=== PATIENT | female | born 1955 | race Caucasian/White ===

== ENCOUNTER 2018-09-09 11:04 | Observation (INO) | payer OTHER, SELFPAY ==
[2018-09-09] VITALS (7 sets, daily range): BP systolic 103–154; BP diastolic 61–85; PULSE 50–67; RESP 14–18; TEMP 36.4–36.7; O2SAT 96–100; BMI 24.0
[2018-09-09] MEDS: KETOROLAC 60 MG/2 ML VIAL 30 MG IV (11:46)
[2018-09-09 11:47] LABS: Add Manual Diff / Slide Review NO; Basophils Percent Auto 1.4 % (0-2); Eosinophils Percent Auto 2.8 % (2-4); Hematocrit 42.2 % (36-46); Hemoglobin 14.3 g/dL (12.0-16.0); Lymphocytes Percent Auto 31.7 % (25-40); Mean Corpuscular Hemoglobin 32.9 PG (26-34); Mean Corpuscular Volume 96.9 fL (80-100); Neutrophils Absolute Auto 2900 /uL (3000-5900); Neutrophils Percent Auto 57.1 % (50-75); Platelet Count 222 X10^3/uL (150-400); Red Blood Cell Count 4.36 X10^6/uL (4.0-5.2); Red Cell Distribution Width 13.1 % (11.6-14.8)
[2018-09-09] MEDS: ONDANSETRON 4 MG/2 ML INJ IV ×3 (11:47→19:26)
[2018-09-09 11:54] LABS: INR 0.9 (0.9-1.3)
[2018-09-09 11:57] LABS: PTT Partial Thromboplastin Tim 20 SECONDS (26.4-36.2)
[2018-09-09 11:58] LABS: Alanine Aminotransferase 72 IU/L (9-52); Albumin 4.4 g/dL (3.5-5.0); Albumin Globulin Ratio 1.6 (1.0-2.8); Alkaline Phosphatase 104 U/L (38-126); Aspartate Aminotransferase 104 IU/L (14-36); Bilirubin Total 0.5 mg/dL (0.2-1.3); Blood Urea Nitrogen 15 mg/dL (7-17); Calcium 8.8 mg/dL (8.4-10.2); Carbon Dioxide 27 mmol/L (22-32); Chloride 101 mmol/L (98-107); Estimated Glomerular Filt Rate 55.8 mL/min (>60); Globulin 2.7 g/dL (1.7-4.1); Glucose 112 mg/dL (80-110); HEMOLYSIS < 15 (0-50); Lipase 113 U/L (23-300); Potassium 3.9 mmol/L (3.4-5.1); Sodium 139 mmol/L (137-145); Total Protein 7.1 g/dL (6.3-8.2)
[2018-09-09 12:44] LABS: Bacteria Urine Moderate (10-30); RBC Urine 1-5/HPF (0-5/HPF); Squamous Epithelial Cell Urine 5-10 /HPF; WBC Urine 5-10/HPF (0-5/HPF)
[2018-09-09 12:45] LABS: Culture Indicated Urine Specimen Cultured
--- NOTE | 2018-09-09 12:51 | ED.FEMALEGU ---
HPI - Female Genitourinary <LAURA Torres - Last Filed: 09/09/18 22:24> General Chief complaint: Urogenital-Female Stated complaint: kidney stones Time Seen by Provider: 09/09/18 11:41 Source: patient Mode of arrival: ambulatory Limitations: no limitations History of Present Illness HPI Narrative: A 62-year-old female with history of kidney stones as a nonsmoker here for complaint of pain into her suprapubic area and also to the right flank area that started earlier today. She states that the feels like she has a kidney stone at this time.. She has also had nausea vomiting. She denies any fevers. She denies any urinary symptoms. No trauma to the abdomen or to the flank area. She denies any blood in her urine. She denies any stressors relievers of her discomfort. Related Data Home Medications Medication Instructions Recorded Confirmed lisdexamfetamine [Vyvanse] 40 mg PO QAM 09/09/18 09/09/18 naproxen sodium [Aleve] 440 mg PO BID PRN 09/09/18 09/09/18 trazodone 50 mg PO BEDTIME PRN 09/09/18 09/09/18 venlafaxine 75 mg PO DAILY 09/09/18 09/09/18 Allergies Allergy/AdvReac Type Severity Reaction Status Date / Time erythromycin base Allergy Unknown Verified 09/09/18 11:21 Review of Systems <LAURA Torres - Last Filed: 09/09/18 22:24> Constitutional Denies chills, Denies fever(s), Denies lethargy and Denies weakness Eyes Denies change in vision, Denies eye discharge, Denies irritation and Denies loss of vision ENT Ears, Nose, Mouth, and Throat: Denies change in voice, Denies neck pain and Denies sore throat Cardiovascular Denies chest pain, Denies irregular heart rhythm, Denies lightheadedness, Denies palpitations, Denies dyspnea, Denies dyspnea on exertion and Denies orthopnea Respiratory Denies cough, Denies dyspnea, Denies dyspnea on exertion and Denies wheezing Gastrointestinal Gastrointestinal: Denies abdominal pain, Denies change in bowel habits, Denies diarrhea, Denies nausea and Denies vomiting Genitourinary Comments: Suprapubic pain and flank pain Musculoskeletal Denies neck pain Integumentary/Breasts Denies pruritus, Denies erythema, Denies rash and Denies wounds Neurologic Denies confusion, Denies loss of vision and Denies weakness Psychiatric Denies anxiety, Denies confusion, Denies depression, Denies homicidal ideation and Denies suicidal ideation Endocrine Denies palpitations Hematologic/Lymphatic Denies easy bruising Allergic/Immunologic Denies wheezing Exam <LAURA Torres - Last Filed: 09/09/18 22:24> Initial Vital Signs Initial Vital Signs: Vital Signs Temperature 97.6 F 09/09/18 11:18 Pulse Rate 50 L 09/09/18 11:18 Respiratory Rate 14 09/09/18 11:18 Blood Pressure 142/85 H 09/09/18 11:18 Pulse Oximetry 100 09/09/18 11:18 Const General: cooperative and well developed Nutritional Appearance: well nourished Orientation: alert, awake, oriented x3 and not confused HENMT Mouth: oral mucosae normal and mucous membranes abnormal Eyes Conjunctivae: conjunctivae normal Sclera: sclerae normal Pupils: PERRL EOM: EOM intact bilaterally Resp Effort & Inspection: normal respiratory effort, able to speak in complete sentences, no respiratory distress and no use of accessory muscles Auscultation: clear to auscultation bilaterally, no rales, no rhonchi and no wheezes Cardio Rate: regular rate Rhythm: regular rhythm Heart Sounds: no click, no gallops, no murmurs and no rubs Pulses: normal peripheral pulses GI Inspection: non-distended Palpation: soft, no hepatosplenomegaly, No guarding, No pulsatile mass and tender (Suprapubic tenderness) Auscultation: normal bowel sounds General: No CVA tenderness Back/Spine/Pelvis Other: Tenderness to paraspinals the lumbar spine Skin General: no rashes or lesions noted, No jaundice and No petechiae Neuro General: alert, oriented x3, gait normal and no focal motor deficits Speech: speech normal <Ortega Waldron DO - Last Filed: 09/10/18 07:04> Initial Vital Signs Initial Vital Signs: Vital Signs Temperature 97.6 F 09/09/18 11:18 Pulse Rate 50 L 09/09/18 11:18 Respiratory Rate 14 09/09/18 11:18 Blood Pressure 142/85 H 09/09/18 11:18 Pulse Oximetry 100 09/09/18 11:18 Course <LAURA Torres - Last Filed: 09/09/18 22:24> Orders Ordered: ED Orders 09/10/18 05:37 Basic Metabolic Panel Routine Complete Blood Count AUTO DIFF Routine Enoxaparin Sodium (Lovenox) 40 mg SUBCUT DAILY [facility] Levofloxacin (Levaquin) 750 mg in 150 mls @ 100 mls/hr IV Q24H STEPHANIE Sodium Chloride (Normal Saline 0.9%) 1,000 mls @ 100 mls/hr IV CONT STEPHANIE Last Admin: 09/10/18 03:20 Dose: 100 mls/hr Infusion: 09/10/18 02:31 Dose: 100 mls/hr Admin: 09/09/18 16:31 Dose: 100 mls/hr Indomethacin (Indocin) 25 mg PO Q6H PRN PRN Reason: RENAL COLIC Morphine Sulfate (Morphine) 2 mg IV Q4HR PRN PRN Reason: Pain, Moderate (4-6) Last Admin: 09/09/18 16:39 Dose: 2 mg Vyvanse 40 Mg 40 mg PO DAILY [facility] Ondansetron HCl (Zofran) 4 mg IV Q4HR PRN PRN Reason: Nausea And Vomiting Last Admin: 09/09/18 19:26 Dose: 4 mg Admin: 09/09/18 13:11 Dose: 4 mg Prochlorperazine (Compazine) 5 mg IV Q6HR PRN PRN Reason: Nausea Tamsulosin HCl (Flomax) 0.4 mg PO DAILY [facility] Trazodone HCl (Desyrel) 50 mg PO BEDTIME PRN PRN Reason: insomnia Venlafaxine HCl (Effexor Xr) 75 mg PO DAILY [facility] Discontinued Medications Diphenhydramine HCl (Benadryl) 25 mg IV NOW ONE Stop: 09/09/18 14:23 Last Admin: 09/09/18 14:25 Dose: 25 mg Sodium Chloride (Normal Saline 0.9%) 1,000 mls @ 1,000 mls/hr IV BOLUS ONE Stop: 09/09/18 14:27 Last Infusion: 09/09/18 16:17 Dose: 0 mls/hr Admin: 09/09/18 13:53 Dose: 1,000 mls/hr Ceftriaxone Sodium/Dextrose (Rocephin) 1 gm in 50 mls @ 100 mls/hr IV NOW ONE Stop: 09/09/18 13:57 Last Infusion: 09/09/18 16:17 Dose: 0 mls/hr Admin: 09/09/18 13:53 Dose: 100 mls/hr Levofloxacin (Levaquin) 750 mg in 150 mls @ 100 mls/hr IV NOW ONE Stop: 09/09/18 16:18 Last Admin: 09/09/18 15:34 Dose: 100 mls/hr Ketorolac Tromethamine (Toradol) 30 mg IV NOW ONE Stop: 09/09/18 11:42 Last Admin: 09/09/18 11:46 Dose: 30 mg Ondansetron HCl (Zofran) 4 mg IV NOW ONE Stop: 09/09/18 11:25 Last Admin: 09/09/18 11:47 Dose: 4 mg Prochlorperazine (Compazine) 10 mg IV NOW ONE Stop: 09/09/18 14:23 Last Admin: 09/09/18 14:25 Dose: 10 mg Promethazine HCl (Phenadoz) 12.5 mg SD Q6HR PRN PRN Reason: Nausea And Vomiting Tamsulosin HCl (Flomax) 0.4 mg PO NOW ONE Stop: 09/09/18 14:50 Last Admin: 09/09/18 16:17 Dose: Not Given Vital Signs - 8 hr 09/09/18 23:25 09/10/18 00:00 09/10/18 03:27 Temperature 98.0 F 97.6 F Pulse Rate 67 61 Respiratory Rate 18 16 Blood Pressure 103/61 103/50 L Pulse Oximetry 96 96 94 <Ortega Waldron, - Last Filed: 09/10/18 07:04> Orders Ordered: ED Orders 09/10/18 05:37 Basic Metabolic Panel Routine Complete Blood Count AUTO DIFF Routine Enoxaparin Sodium (Lovenox) 40 mg SUBCUT DAILY [facility] Levofloxacin (Levaquin) 750 mg in 150 mls @ 100 mls/hr IV Q24H STEPHANIE Sodium Chloride (Normal Saline 0.9%) 1,000 mls @ 100 mls/hr IV CONT STEPHANIE Last Admin: 09/10/18 03:20 Dose: 100 mls/hr Infusion: 09/10/18 02:31 Dose: 100 mls/hr Admin: 09/09/18 16:31 Dose: 100 mls/hr Indomethacin (Indocin) 25 mg PO Q6H PRN PRN Reason: RENAL COLIC Morphine Sulfate (Morphine) 2 mg IV Q4HR PRN PRN Reason: Pain, Moderate (4-6) Last Admin: 09/09/18 16:39 Dose: 2 mg Vyvanse 40 Mg 40 mg PO DAILY [facility] Ondansetron HCl (Zofran) 4 mg IV Q4HR PRN PRN Reason: Nausea And Vomiting Last Admin: 09/09/18 19:26 Dose: 4 mg Admin: 09/09/18 13:11 Dose: 4 mg Prochlorperazine (Compazine) 5 mg IV Q6HR PRN PRN Reason: Nausea Tamsulosin HCl (Flomax) 0.4 mg PO DAILY [facility] Trazodone HCl (Desyrel) 50 mg PO BEDTIME PRN PRN Reason: insomnia Venlafaxine HCl (Effexor Xr) 75 mg PO DAILY [facility] Discontinued Medications Diphenhydramine HCl (Benadryl) 25 mg IV NOW ONE Stop: 09/09/18 14:23 Last Admin: 09/09/18 14:25 Dose: 25 mg Sodium Chloride (Normal Saline 0.9%) 1,000 mls @ 1,000 mls/hr IV BOLUS ONE Stop: 09/09/18 14:27 Last Infusion: 09/09/18 16:17 Dose: 0 mls/hr Admin: 09/09/18 13:53 Dose: 1,000 mls/hr Ceftriaxone Sodium/Dextrose (Rocephin) 1 gm in 50 mls @ 100 mls/hr IV NOW ONE Stop: 09/09/18 13:57 Last Infusion: 09/09/18 16:17 Dose: 0 mls/hr Admin: 09/09/18 13:53 Dose: 100 mls/hr Levofloxacin (Levaquin) 750 mg in 150 mls @ 100 mls/hr IV NOW ONE Stop: 09/09/18 16:18 Last Admin: 09/09/18 15:34 Dose: 100 mls/hr Ketorolac Tromethamine (Toradol) 30 mg IV NOW ONE Stop: 09/09/18 11:42 Last Admin: 09/09/18 11:46 Dose: 30 mg Ondansetron HCl (Zofran) 4 mg IV NOW ONE Stop: 09/09/18 11:25 Last Admin: 09/09/18 11:47 Dose: 4 mg Prochlorperazine (Compazine) 10 mg IV NOW ONE Stop: 09/09/18 14:23 Last Admin: 09/09/18 14:25 Dose: 10 mg Promethazine HCl (Phenadoz) 12.5 mg SD Q6HR PRN PRN Reason: Nausea And Vomiting Tamsulosin HCl (Flomax) 0.4 mg PO NOW ONE Stop: 09/09/18 14:50 Last Admin: 09/09/18 16:17 Dose: Not Given Vital Signs - 8 hr 09/09/18 23:25 09/10/18 00:00 09/10/18 03:27 Temperature 98.0 F 97.6 F Pulse Rate 67 61 Respiratory Rate 18 16 Blood Pressure 103/61 103/50 L Pulse Oximetry 96 96 94 MDM - Female Genitourinary <LAURA Torres - Last Filed: 09/09/18 22:24> Lab Data Result diagrams: 09/10/18 05:37 09/10/18 05:37 Lab Results 09/09/18 09/09/18 09/09/18 Range/Units 11:35 11:35 11:35 WBC 5.0 (4.5-11.0) X10^3/uL RBC 4.36 (4.0-5.2) X10^6/uL Hgb 14.3 (12.0-16.0) g/dL Hct 42.2 (36-46) % MCV 96.9 (80-100) fL MCH 32.9 (26-34) PG MCHC 34.0 (30-36) % RDW 13.1 (11.6-14.8) % Plt Count 222 (150-400) X10^3/uL Neut % (Auto) 57.1 (50-75) % Lymph % (Auto) 31.7 (25-40) % Gall[place] % (Auto) 7.0 (3-14) % Eos % (Auto) 2.8 (2-4) % Baso % (Auto) 1.4 (0-2) % Neut # (Auto) 2900 L (1803-0640) /uL PT 10.0 L (10.1-12.7) SECONDS INR 0.9 (0.9-1.3) APTT 20 L (26.4-36.2) SECONDS Sodium 139 (137-145) mmol/L Potassium 3.9 (3.4-5.1) mmol/L Chloride 101 (98-107) mmol/L Carbon Dioxide 27 (22-32) mmol/L BUN 15 (7-17) mg/dL Creatinine 1.00 (0.52-1.04) mg/dL Estimated GFR 55.8 L (>60) mL/min BUN/Creatinine Ratio 15.0 (6-22) Glucose 112 H (80-110) mg/dL Lactate (0.7-2.1) mmol/L Calcium 8.8 (8.4-10.2) mg/dL Total Bilirubin 0.5 (0.2-1.3) mg/dL AST 104 H (14-36) IU/L ALT 72 H (9-52) IU/L Alkaline Phosphatase 104 (38-126) U/L Total Protein 7.1 (6.3-8.2) g/dL Albumin 4.4 (3.5-5.0) g/dL Globulin 2.7 (1.7-4.1) g/dL Albumin/Globulin Ratio 1.6 (1.0-2.8) Lipase 113 (23-300) U/L Procalcitonin (<0.5) ng/mL Urine RBC (0-5/HPF) Urine WBC (0-5/HPF) Ur Squamous Epith Cells Urine Bacteria (None) Ur Culture Indicated? Micro UA Comment 09/09/18 09/09/18 09/09/18 Range/Units 11:35 12:28 15:17 WBC (4.5-11.0) X10^3/uL RBC (4.0-5.2) X10^6/uL Hgb (12.0-16.0) g/dL Hct (36-46) % MCV (80-100) fL MCH (26-34) PG MCHC (30-36) % RDW (11.6-14.8) % Plt Count (150-400) X10^3/uL Neut % (Auto) (50-75) % Lymph % (Auto) (25-40) % Gall[place] % (Auto) (3-14) % Eos % (Auto) (2-4) % Baso % (Auto) (0-2) % Neut # (Auto) (9783-2707) /uL PT (10.1-12.7) SECONDS INR (0.9-1.3) APTT (26.4-36.2) SECONDS Sodium (137-145) mmol/L Potassium (3.4-5.1) mmol/L Chloride (98-107) mmol/L Carbon Dioxide (22-32) mmol/L BUN (7-17) mg/dL Creatinine (0.52-1.04) mg/dL Estimated GFR (>60) mL/min BUN/Creatinine Ratio (6-22) Glucose (80-110) mg/dL Lactate 1.9 (0.7-2.1) mmol/L Calcium (8.4-10.2) mg/dL Total Bilirubin (0.2-1.3) mg/dL AST (14-36) IU/L ALT (9-52) IU/L Alkaline Phosphatase (38-126) U/L Total Protein (6.3-8.2) g/dL Albumin (3.5-5.0) g/dL Globulin (1.7-4.1) g/dL Albumin/Globulin Ratio (1.0-2.8) Lipase (23-300) U/L Procalcitonin < 0.05 (<0.5) ng/mL Urine RBC 1-5/hpf (0-5/HPF) Urine WBC 5-10/hpf H (0-5/HPF) Ur Squamous Epith Cells 5-10 /hpf H Urine Bacteria Moderate (10-30) H (None) Ur Culture Indicated? Specimen cultured Micro UA Comment Not Reportable 09/10/18 09/10/18 Range/Units 05:37 05:37 WBC 6.2 (4.5-11.0) X10^3/uL RBC 3.85 L (4.0-5.2) X10^6/uL Hgb 12.6 (12.0-16.0) g/dL Hct 37.5 (36-46) % MCV 97.2 (80-100) fL MCH 32.8 (26-34) PG MCHC 33.8 (30-36) % RDW 12.8 (11.6-14.8) % Plt Count 190 (150-400) X10^3/uL Neut % (Auto) 62.1 (50-75) % Lymph % (Auto) 28.0 (25-40) % Gallia % (Auto) 7.5 (3-14) % Eos % (Auto) 1.3 L (2-4) % Baso % (Auto) 1.1 (0-2) % Neut # (Auto) 3900 (0047-8111) /uL PT (10.1-12.7) SECONDS INR (0.9-1.3) APTT (26.4-36.2) SECONDS Sodium 136 L (137-145) mmol/L Potassium 3.9 (3.4-5.1) mmol/L Chloride 105 (98-107) mmol/L Carbon Dioxide 22 (22-32) mmol/L BUN 14 (7-17) mg/dL Creatinine 0.80 (0.52-1.04) mg/dL Estimated GFR > 60.0 (>60) mL/min BUN/Creatinine Ratio 17.5 (6-22) Glucose 96 (80-110) mg/dL Lactate (0.7-2.1) mmol/L Calcium 7.9 L (8.4-10.2) mg/dL Total Bilirubin (0.2-1.3) mg/dL AST (14-36) IU/L ALT (9-52) IU/L Alkaline Phosphatase (38-126) U/L Total Protein (6.3-8.2) g/dL Albumin (3.5-5.0) g/dL Globulin (1.7-4.1) g/dL Albumin/Globulin Ratio (1.0-2.8) Lipase (23-300) U/L Procalcitonin (<0.5) ng/mL Urine RBC (0-5/HPF) Urine WBC (0-5/HPF) Ur Squamous Epith Cells Urine Bacteria (None) Ur Culture Indicated? Micro UA Comment Urine Dip Bedside Urine Glucose Negative Bedside Urine Bilirubin - Negative Bedside Urine Ketone - Negative Urine Specific [place]ors 1.015 Bedside Urine Occult Blood +/- Bedside Urine pH 8.0 Bedside Urine Protein - Negative Bedside Urine Urobilinogen - Negative Bedside Urine Nitrite - Negative Bedside Urine Leukocytes +++ [address] scan - abdomen: Radiologist's impression: [address] [address] [address] Scan Report Signed Patient: Meghana King#: [id number] : 4Acct:[id number] Age/Sex: 62 / FDate of Service: 09/09/18 Loc: ED Accession Number: [id number] Procedure: CT kidney ureter bladder (KUB) Ordering Provider: Osmin Sanchez PROCEDURE: CT KIDNEY URETER BLADDER (KUB) INDICATIONS: History kidney stones right flank pain TECHNIQUE: Noncontrast 5 mm thick sections acquired from the diaphragms to the symphysis. 5 mm thick coronal and sagittal reformats were then performed. For radiation dose reduction, the following was used: automated exposure control, adjustment of mA and/or kV according to patient size. COMPARISON: None. FINDINGS: Image quality: Excellent. Lung bases: Lung bases are clear. Heart size is normal. Urinary system: The right kidney is enlarged with mild perinephric fat stranding. There is mild right hydronephrosis and a large extrarenal pelvis with mild dilatation of the right ureter to the level of the pelvis. There is likely a 4 mm diameter calculus within the distal right ureter (series 2, image 65). However, the ureter is not definitely visualized in this region given the confluence of vessels on decompressed loops of small bowel making confirmation for ureterolithiasis difficult. Left kidney demonstrates normal size. There is a large low density upper pole left renal cyst. There is likely a cortical cyst within the lower pole the right kidney as well. No left nephrolithiasis ureterolithiasis or hydroureter. Other solid organs: Liver is normal in size. Gallbladder is unremarkable. Pancreas is normal in contours. Spleen is normal in size. No adrenal nodules. Peritoneum and bowel: Unenhanced bowel loops demonstrate normal wall thickness and caliber. The appendix is thin walled and gas filled. There are scattered sigmoid diverticula. No evidence for diverticulitis. No free fluid or air. Nodes and vessels: No retroperitoneal or mesenteric adenopathy by size criteria. Aorta and inferior vena cava are normal in caliber. Abdominal wall: No ventral hernias. Pelvis: No free pelvic fluid. No inguinal hernias or adenopathy. Bones: No suspicious bony lesions. No vertebral body compression fractures. IMPRESSION: 1. Findings suspicious for obstructive ureterolithiasis of the distal right ureter as described above. 2. Perinephric fat stranding can be associated with obstruction; however pyelonephritis could also cause this appearance. Please correlate clinically. These findings were discussed with LAURA Torres at 2:22 PM on 09/09/18. 3. Normal appendix. Diverticulosis. No acute diverticulitis. Dictated by: Subha Ardon M.D. on 09/09/2018 at 14:18 Approved by: Subha Ardon M.D. on 09/09/2018 at 14:25 ECG Data Interpretation: EKG shows sinus bradycardia no ST elevation or depression. No ectopy. Ventricular rate of 51. Pr interval 153. QRS duration of 89. QT of 469. MDM Narrative Medical decision making narrative: Urinalysis was obtained and indicates WBCsAnd leuko esterase concerning for urinary tract infection. CBC was obtained was unremarkable. CMP was obtained and shows mildly elevated AST and ALT. There is a slight decrease in her GFR 55.8. KUB CT was obtained and shows right hydroureter right hydronephrosis and signs of a 4 mm stone into her right distal ureter however it Radiology was not able to definitely visualize a stone. Patient was given 8 of Zofran and 10 of Compazine and 25 of Benadryl to help with her nausea. Her nausea was better after this however was not fully resolved. Discussed case with Urology at who recommended admission due to her nausea and vomiting and concerned about her being able to tolerate p.o. medications. She was started on Levaquin to treat urinary tract infection/pyelonephritis. She was also given Flomax p.o. to help her pass the stone. Urine culture, blood cultures were obtained and are pending. Discussed case with hospitalist who accepted the patient. Patient admitted to observation <Ortega Waldron DO - Last Filed: 09/10/18 07:04> Lab Data Lab Results 09/09/18 09/09/18 09/09/18 Range/Units 11:35 11:35 11:35 WBC 5.0 (4.5-11.0) X10^3/uL RBC 4.36 (4.0-5.2) X10^6/uL Hgb 14.3 (12.0-16.0) g/dL Hct 42.2 (36-46) % MCV 96.9 (80-100) fL MCH 32.9 (26-34) PG MCHC 34.0 (30-36) % RDW 13.1 (11.6-14.8) % Plt Count 222 (150-400) X10^3/uL Neut % (Auto) 57.1 (50-75) % Lymph % (Auto) 31.7 (25-40) % Gallia % (Auto) 7.0 (3-14) % Eos % (Auto) 2.8 (2-4) % Baso % (Auto) 1.4 (0-2) % Neut # (Auto) 2900 L (8700-7068) /uL PT 10.0 L (10.1-12.7) SECONDS INR 0.9 (0.9-1.3) APTT 20 L (26.4-36.2) SECONDS Sodium 139 (137-145) mmol/L Potassium 3.9 (3.4-5.1) mmol/L Chloride 101 (98-107) mmol/L Carbon Dioxide 27 (22-32) mmol/L BUN 15 (7-17) mg/dL Creatinine 1.00 (0.52-1.04) mg/dL Estimated GFR 55.8 L (>60) mL/min BUN/Creatinine Ratio 15.0 (6-22) Glucose 112 H (80-110) mg/dL Lactate (0.7-2.1) mmol/L Calcium 8.8 (8.4-10.2) mg/dL Total Bilirubin 0.5 (0.2-1.3) mg/dL AST 104 H (14-36) IU/L ALT 72 H (9-52) IU/L Alkaline Phosphatase 104 (38-126) U/L Total Protein 7.1 (6.3-8.2) g/dL Albumin 4.4 (3.5-5.0) g/dL Globulin 2.7 (1.7-4.1) g/dL Albumin/Globulin Ratio 1.6 (1.0-2.8) Lipase 113 (23-300) U/L Procalcitonin (<0.5) ng/mL Urine RBC (0-5/HPF) Urine WBC (0-5/HPF) Ur Squamous Epith Cells Urine Bacteria (None) Ur Culture Indicated? Micro UA Comment 09/09/18 09/09/1809/09/18 Range/Units 11:35 12:28 15:17 WBC (4.5-11.0) X10^3/uL RBC (4.0-5.2) X10^6/uL Hgb (12.0-16.0) g/dL Hct (36-46) % MCV (80-100) fL MCH (26-34) PG MCHC (30-36) % RDW (11.6-14.8) % Plt Count (150-400) X10^3/uL Neut % (Auto) (50-75) % Lymph % (Auto) (25-40) % Gallia % (Auto) (3-14) % Eos % (Auto) (2-4) % Baso % (Auto) (0-2) % Neut # (Auto) (2601-1655) /uL PT (10.1-12.7) SECONDS INR (0.9-1.3) APTT (26.4-36.2) SECONDS Sodium (137-145) mmol/L Potassium (3.4-5.1) mmol/L Chloride (98-107) mmol/L Carbon Dioxide (22-32) mmol/L BUN (7-17) mg/dL Creatinine (0.52-1.04) mg/dL Estimated GFR (>60) mL/min BUN/Creatinine Ratio (6-22) Glucose (80-110) mg/dL Lactate 1.9 (0.7-2.1) mmol/L Calcium (8.4-10.2) mg/dL Total Bilirubin (0.2-1.3) mg/dL AST (14-36) IU/L ALT (9-52) IU/L Alkaline Phosphatase (38-126) U/L Total Protein (6.3-8.2) g/dL Albumin (3.5-5.0) g/dL Globulin (1.7-4.1) g/dL Albumin/Globulin Ratio (1.0-2.8) Lipase (23-300) U/L Procalcitonin < 0.05 (<0.5) ng/mL Urine RBC 1-5/hpf (0-5/HPF) Urine WBC 5-10/hpf H (0-5/HPF) Ur Squamous Epith Cells 5-10 /hpf H Urine Bacteria Moderate (10-30) H (None) Ur Culture Indicated? Specimen cultured Micro UA Comment Not Reportable 09/10/18 09/10/18 Range/Units 05:37 05:37 WBC 6.2 (4.5-11.0) X10^3/uL RBC 3.85 L (4.0-5.2) X10^6/uL Hgb 12.6 (12.0-16.0) g/dL Hct 37.5 (36-46) % MCV 97.2 (80-100) fL MCH 32.8 (26-34) PG MCHC 33.8 (30-36) % RDW 12.8 (11.6-14.8) % Plt Count 190 (150-400) X10^3/uL Neut % (Auto) 62.1 (50-75) % Lymph % (Auto) 28.0 (25-40) % Gallia % (Auto) 7.5 (3-14) % Eos % (Auto) 1.3 L (2-4) % Baso % (Auto) 1.1 (0-2) % Neut # (Auto) 3900 (3189-1539) /uL PT (10.1-12.7) SECONDS INR (0.9-1.3) APTT (26.4-36.2) SECONDS Sodium 136 L (137-145) mmol/L Potassium 3.9 (3.4-5.1) mmol/L Chloride 105 (98-107) mmol/L Carbon Dioxide 22 (22-32) mmol/L BUN 14 (7-17) mg/dL Creatinine 0.80 (0.52-1.04) mg/dL Estimated GFR > 60.0 (>60) mL/min BUN/Creatinine Ratio 17.5 (6-22) Glucose 96 (80-110) mg/dL Lactate (0.7-2.1) mmol/L Calcium 7.9 L (8.4-10.2) mg/dL Total Bilirubin (0.2-1.3) mg/dL AST (14-36) IU/L ALT (9-52) IU/L Alkaline Phosphatase (38-126) U/L Total Protein (6.3-8.2) g/dL Albumin (3.5-5.0) g/dL Globulin (1.7-4.1) g/dL Albumin/Globulin Ratio (1.0-2.8) Lipase (23-300) U/L Procalcitonin (<0.5) ng/mL Urine RBC (0-5/HPF) Urine WBC (0-5/HPF) Ur Squamous Epith Cells Urine Bacteria (None) Ur Culture Indicated? Micro UA Comment Urine Dip Bedside Urine Glucose Negative Bedside Urine Bilirubin - Negative Bedside Urine Ketone - Negative Urine Specific [place] 1.015 Bedside Urine Occult Blood +/- Bedside Urine pH 8.0 Bedside Urine Protein - Negative Bedside Urine Urobilinogen - Negative Bedside Urine Nitrite - Negative Bedside Urine Leukocytes +++ 500 Esterase Discharge Plan Departure Patient Disposition: Admitted as Observation Clinical Impression: Nephrolithiasis Discharge Date/Time: 09/09/18 16:13 Interventions: ED Discharge Assessment Last Done: 09/09/18 16:13 Admit Date/Time: 09/09/18 15:09 Admit Provider: Doris Brown <Ortega Waldron DO - Last Filed: 09/10/18 07:04> Cosign ED Attending Georginaature Attestation: I was available for consultation during this patient's emergency department encounter
--- NOTE | 2018-09-09 13:28 | DI.CT.S_ITS ---
PROCEDURE: CT KIDNEY URETER BLADDER (KUB) INDICATIONS: History kidney stones right flank pain TECHNIQUE: Noncontrast 5 mm thick sections acquired from the diaphragms to the symphysis. 5 mm thick coronal and sagittal reformats were then performed. For radiation dose reduction, the following was used: automated exposure control, adjustment of mA and/or kV according to patient size. COMPARISON: None. FINDINGS: Image quality: Excellent. Lung bases: Lung bases are clear. Heart size is normal. Urinary system: The right kidney is enlarged with mild perinephric fat stranding. There is mild right hydronephrosis and a large extrarenal pelvis with mild dilatation of the right ureter to the level of the pelvis. There is likely a 4 mm diameter calculus within the distal right ureter (series 2, image 65). However, the ureter is not definitely visualized in this region given the confluence of vessels on decompressed loops of small bowel making confirmation for ureterolithiasis difficult. Left kidney demonstrates normal size. There is a large low density upper pole left renal cyst. There is likely a cortical cyst within the lower pole the right kidney as well. No left nephrolithiasis ureterolithiasis or hydroureter. Other solid organs: Liver is normal in size. Gallbladder is unremarkable. Pancreas is normal in contours. Spleen is normal in size. No adrenal nodules. Peritoneum and bowel: Unenhanced bowel loops demonstrate normal wall thickness and caliber. The appendix is thin walled and gas filled. There are scattered sigmoid diverticula. No evidence for diverticulitis. No free fluid or air. Nodes and vessels: No retroperitoneal or mesenteric adenopathy by size criteria. Aorta and inferior vena cava are normal in caliber. Abdominal wall: No ventral hernias. Pelvis: No free pelvic fluid. No inguinal hernias or adenopathy. Bones: No suspicious bony lesions. No vertebral body compression fractures. IMPRESSION: 1. Findings suspicious for obstructive ureterolithiasis of the distal right ureter as described above. 2. Perinephric fat stranding can be associated with obstruction; however pyelonephritis could also cause this appearance. Please correlate clinically. These findings were discussed with LAURA Torres at 2:22 PM on 09/09/18. 3. Normal appendix. Diverticulosis. No acute diverticulitis. Dictated by: Subha Ardon M.D. on 09/09/2018 at 14:18 Approved by: Subha Ardon M.D. on 09/09/2018 at 14:25
[2018-09-09] MEDS: CEFTRIAXONE 1 GM/50 ML FROZ.PIGGY IV (13:53)
[2018-09-09] MEDS: SODIUM CHLORIDE 0.9% 1,000 ML 1000 ML IV (13:53)
[2018-09-09] MEDS: diphenhydrAMINE 50 MG/ML VIAL 25 MG IV (14:25)
[2018-09-09] MEDS: PROCHLORPERAZINE 10 MG/2 ML VIAL IV (14:25)
--- NOTE | 2018-09-09 15:07 | ED_ITS ---
HPI - Female Genitourinary <LAURA Torres - Last Filed: 09/09/18 22:24> General Chief complaint: Urogenital-Female Stated complaint: kidney stones Time Seen by Provider: 09/09/18 11:41 Source: patient Mode of arrival: ambulatory Limitations: no limitations History of Present Illness HPI Narrative: A 62-year-old female with history of kidney stones as a nonsmoker here for complaint of pain into her suprapubic area and also to the right flank area that started earlier today. She states that the feels like she has a kidney stone at this time.. She has also had nausea vomiting. She denies any fevers. She denies any urinary symptoms. No trauma to the abdomen or to the flank area. She denies any blood in her urine. She denies any stressors relievers of her discomfort. Related Data Home Medications Medication Instructions Recorded Confirmed lisdexamfetamine [Vyvanse] 40 mg PO QAM 09/09/18 09/09/18 naproxen sodium [Aleve] 440 mg PO BID PRN 09/09/18 09/09/18 trazodone 50 mg PO BEDTIME PRN 09/09/18 09/09/18 venlafaxine 75 mg PO DAILY 09/09/18 09/09/18 Allergies Allergy/AdvReac Type Severity Reaction Status Date / Time erythromycin base Allergy Unknown Verified 09/09/18 11:21 Review of Systems <LAURA Torres - Last Filed: 09/09/18 22:24> Constitutional Denies chills, Denies fever(s), Denies lethargy and Denies weakness Eyes Denies change in vision, Denies eye discharge, Denies irritation and Denies loss of vision ENT Ears, Nose, Mouth, and Throat: Denies change in voice, Denies neck pain and Denies sore throat Cardiovascular Denies chest pain, Denies irregular heart rhythm, Denies lightheadedness, Denies palpitations, Denies dyspnea, Denies dyspnea on exertion and Denies orthopnea Respiratory Denies cough, Denies dyspnea, Denies dyspnea on exertion and Denies wheezing Gastrointestinal Gastrointestinal: Denies abdominal pain, Denies change in bowel habits, Denies diarrhea, Denies nausea and Denies vomiting Genitourinary Comments: Suprapubic pain and flank pain Musculoskeletal Denies neck pain Integumentary/Breasts Denies pruritus, Denies erythema, Denies rash and Denies wounds Neurologic Denies confusion, Denies loss of vision and Denies weakness Psychiatric Denies anxiety, Denies confusion, Denies depression, Denies homicidal ideation and Denies suicidal ideation Endocrine Denies palpitations Hematologic/Lymphatic Denies easy bruising Allergic/Immunologic Denies wheezing Exam <LAURA Torres - Last Filed: 09/09/18 22:24> Initial Vital Signs Initial Vital Signs: Vital Signs Temperature 97.6 F 09/09/18 11:18 Pulse Rate 50 L 09/09/18 11:18 Respiratory Rate 14 09/09/18 11:18 Blood Pressure 142/85 H 09/09/18 11:18 Pulse Oximetry 100 09/09/18 11:18 Const General: cooperative and well developed Nutritional Appearance: well nourished Orientation: alert, awake, oriented x3 and not confused HENMT Mouth: oral mucosae normal and mucous membranes abnormal Eyes Conjunctivae: conjunctivae normal Sclera: sclerae normal Pupils: PERRL EOM: EOM intact bilaterally Resp Effort & Inspection: normal respiratory effort, able to speak in complete sentences, no respiratory distress and no use of accessory muscles Auscultation: clear to auscultation bilaterally, no rales, no rhonchi and no wheezes Cardio Rate: regular rate Rhythm: regular rhythm Heart Sounds: no click, no gallops, no murmurs and no rubs Pulses: normal peripheral pulses GI Inspection: non-distended Palpation: soft, no hepatosplenomegaly, No guarding, No pulsatile mass and tender (Suprapubic tenderness) Auscultation: normal bowel sounds General: No CVA tenderness Back/Spine/Pelvis Other: Tenderness to paraspinals the lumbar spine Skin General: no rashes or lesions noted, No jaundice and No petechiae Neuro General: alert, oriented x3, gait normal and no focal motor deficits Speech: speech normal <Ortega Waldron DO - Last Filed: 09/10/18 07:04> Initial Vital Signs Initial Vital Signs: Vital Signs Temperature 97.6 F 09/09/18 11:18 Pulse Rate 50 L 09/09/18 11:18 Respiratory Rate 14 09/09/18 11:18 Blood Pressure 142/85 H 09/09/18 11:18 Pulse Oximetry 100 09/09/18 11:18 Course <LAURA Torres - Last Filed: 09/09/18 22:24> Orders Ordered: ED Orders 09/10/18 05:37 Basic Metabolic Panel Routine Complete Blood Count AUTO DIFF Routine Enoxaparin Sodium (Lovenox) 40 mg SUBCUT DAILY [facility] Levofloxacin (Levaquin) 750 mg in 150 mls @ 100 mls/hr IV Q24H STEPH[facility] Sodium Chloride (Normal Saline 0.9%) 1,000 mls @ 100 mls/hr IV CONT STEPHANIE Last Admin: 09/10/18 03:20 Dose: 100 mls/hr Infusion: 09/10/18 02:31 Dose: 100 mls/hr Admin: 09/09/18 16:31 Dose: 100 mls/hr Indomethacin (Indocin) 25 mg PO Q6H PRN PRN Reason: RENAL COLIC Morphine Sulfate (Morphine) 2 mg IV Q4HR PRN PRN Reason: Pain, Moderate (4-6) Last Admin: 09/09/18 16:39 Dose: 2 mg Vyvanse 40 Mg 40 mg PO DAILY [facility] Ondansetron HCl (Zofran) 4 mg IV Q4HR PRN PRN Reason: Nausea And Vomiting Last Admin: 09/09/18 19:26 Dose: 4 mg Admin: 09/09/18 13:11 Dose: 4 mg Prochlorperazine (Compazine) 5 mg IV Q6HR PRN PRN Reason: Nausea Tamsulosin HCl (Flomax) 0.4 mg PO DAILY [facility] Trazodone HCl (Desyrel) 50 mg PO BEDTIME PRN PRN Reason: insomnia Venlafaxine HCl (Effexor Xr) 75 mg PO DAILY [facility] Discontinued Medications Diphenhydramine HCl (Benadryl) 25 mg IV NOW ONE Stop: 09/09/18 14:23 Last Admin: 09/09/18 14:25 Dose: 25 mg Sodium Chloride (Normal Saline 0.9%) 1,000 mls @ 1,000 mls/hr IV BOLUS ONE Stop: 09/09/18 14:27 Last Infusion: 09/09/18 16:17 Dose: 0 mls/hr Admin: 09/09/18 13:53 Dose: 1,000 mls/hr Ceftriaxone Sodium/Dextrose (Rocephin) 1 gm in 50 mls @ 100 mls/hr IV NOW ONE Stop: 09/09/18 13:57 Last Infusion: 09/09/18 16:17 Dose: 0 mls/hr Admin: 09/09/18 13:53 Dose: 100 mls/hr Levofloxacin (Levaquin) 750 mg in 150 mls @ 100 mls/hr IV NOW ONE Stop: 09/09/18 16:18 Last Admin: 09/09/18 15:34 Dose: 100 mls/hr Ketorolac Tromethamine (Toradol) 30 mg IV NOW ONE Stop: 09/09/18 11:42 Last Admin: 09/09/18 11:46 Dose: 30 mg Ondansetron HCl (Zofran) 4 mg IV NOW ONE Stop: 09/09/18 11:25 Last Admin: 09/09/18 11:47 Dose: 4 mg Prochlorperazine (Compazine) 10 mg IV NOW ONE Stop: 09/09/18 14:23 Last Admin: 09/09/18 14:25 Dose: 10 mg Promethazine HCl (Phenadoz) 12.5 mg [place] Q6HR PRN PRN Reason: Nausea And Vomiting Tamsulosin HCl (Flomax) 0.4 mg PO NOW ONE Stop: 09/09/18 14:50 Last Admin: 09/09/18 16:17 Dose: Not Given Vital Signs - 8 hr 09/09/18 23:25 09/10/18 00:00 09/10/18 03:27 Temperature 98.0 F 97.6 F Pulse Rate 67 61 Respiratory Rate 18 16 Blood Pressure 103/61 103/50 L Pulse Oximetry 96 96 94 <Ortega Waldron, - Last Filed: 09/10/18 07:04> Orders Ordered: ED Orders 09/10/18 05:37 Basic Metabolic Panel Routine Complete Blood Count AUTO DIFF Routine Enoxaparin Sodium (Lovenox) 40 mg SUBCUT DAILY [facility] Levofloxacin (Levaquin) 750 mg in 150 mls @ 100 mls/hr IV Q24H [facility] Sodium Chloride (Normal Saline 0.9%) 1,000 mls @ 100 mls/hr IV CONT STEPHANIE Last Admin: 09/10/18 03:20 Dose: 100 mls/hr Infusion: 09/10/18 02:31 Dose: 100 mls/hr Admin: 09/09/18 16:31 Dose: 100 mls/hr Indomethacin (Indocin) 25 mg PO Q6H PRN PRN Reason: RENAL COLIC Morphine Sulfate (Morphine) 2 mg IV Q4HR PRN PRN Reason: Pain, Moderate (4-6) Last Admin: 09/09/18 16:39 Dose: 2 mg Vyvanse 40 Mg 40 mg PO DAILY [facility] Ondansetron HCl (Zofran) 4 mg IV Q4HR PRN PRN Reason: Nausea And Vomiting Last Admin: 09/09/18 19:26 Dose: 4 mg Admin: 09/09/18 13:11 Dose: 4 mg Prochlorperazine (Compazine) 5 mg IV Q6HR PRN PRN Reason: Nausea Tamsulosin HCl (Flomax) 0.4 mg PO DAILY [facility] Trazodone HCl (Desyrel) 50 mg PO BEDTIME PRN PRN Reason: insomnia Venlafaxine HCl (Effexor Xr) 75 mg PO DAILY [facility] Discontinued Medications Diphenhydramine HCl (Benadryl) 25 mg IV NOW ONE Stop: 09/09/18 14:23 Last Admin: 09/09/18 14:25 Dose: 25 mg Sodium Chloride (Normal Saline 0.9%) 1,000 mls @ 1,000 mls/hr IV BOLUS ONE Stop: 09/09/18 14:27 Last Infusion: 09/09/18 16:17 Dose: 0 mls/hr Admin: 09/09/18 13:53 Dose: 1,000 mls/hr Ceftriaxone Sodium/Dextrose (Rocephin) 1 gm in 50 mls @ 100 mls/hr IV NOW ONE Stop: 09/09/18 13:57 Last Infusion: 09/09/18 16:17 Dose: 0 mls/hr Admin: 09/09/18 13:53 Dose: 100 mls/hr Levofloxacin (Levaquin) 750 mg in 150 mls @ 100 mls/hr IV NOW ONE Stop: 09/09/18 16:18 Last Admin: 09/09/18 15:34 Dose: 100 mls/hr Ketorolac Tromethamine (Toradol) 30 mg IV NOW ONE Stop: 09/09/18 11:42 Last Admin: 09/09/18 11:46 Dose: 30 mg Ondansetron HCl (Zofran) 4 mg IV NOW ONE Stop: 09/09/18 11:25 Last Admin: 09/09/18 11:47 Dose: 4 mg Prochlorperazine (Compazine) 10 mg IV NOW ONE Stop: 09/09/18 14:23 Last Admin: 09/09/18 14:25 Dose: 10 mg Promethazine HCl (Phenadoz) 12.5 mg [place] Q6HR PRN PRN Reason: Nausea And Vomiting Tamsulosin HCl (Flomax) 0.4 mg PO NOW ONE Stop: 09/09/18 14:50 Last Admin: 09/09/18 16:17 Dose: Not Given Vital Signs - 8 hr 09/09/18 23:25 09/10/18 00:00 09/10/18 03:27 Temperature 98.0 F 97.6 F Pulse Rate 67 61 Respiratory Rate 18 16 Blood Pressure 103/61 103/50 L Pulse Oximetry 96 96 94 MDM - Female Genitourinary <LAURA Torres - Last Filed: 09/09/18 22:24> Lab Data Result diagrams: 09/10/18 05:37 09/10/18 05:37 Lab Results 09/09/18 09/09/18 09/09/18 Range/Units 11:35 11:35 11:35 WBC 5.0 (4.5-11.0) X10^3/uL RBC 4.36 (4.0-5.2) X10^6/uL Hgb 14.3 (12.0-16.0) g/dL Hct 42.2 (36-46) % MCV 96.9 (80-100) fL MCH 32.9 (26-34) PG MCHC 34.0 (30-36) % RDW 13.1 (11.6-14.8) % Plt Count 222 (150-400) X10^3/uL Neut % (Auto) 57.1 (50-75) % Lymph % (Auto) 31.7 (25-40) % [place] % (Auto) 7.0 (3-14) % Eos % (Auto) 2.8 (2-4) % Baso % (Auto) 1.4 (0-2) % Neut # (Auto) 2900 L (6787-7556) /uL PT 10.0 L (10.1-12.7) SECONDS INR 0.9 (0.9-1.3) APTT 20 L (26.4-36.2) SECONDS Sodium 139 (137-145) mmol/L Potassium 3.9 (3.4-5.1) mmol/L Chloride 101 (98-107) mmol/L Carbon Dioxide 27 (22-32) mmol/L BUN 15 (7-17) mg/dL Creatinine 1.00 (0.52-1.04) mg/dL Estimated GFR 55.8 L (>60) mL/min BUN/Creatinine Ratio 15.0 (6-22) Glucose 112 H (80-110) mg/dL Lactate (0.7-2.1) mmol/L Calcium 8.8 (8.4-10.2) mg/dL Total Bilirubin 0.5 (0.2-1.3) mg/dL AST 104 H (14-36) IU/L ALT 72 H (9-52) IU/L Alkaline Phosphatase 104 (38-126) U/L Total Protein 7.1 (6.3-8.2) g/dL Albumin 4.4 (3.5-5.0) g/dL Globulin 2.7 (1.7-4.1) g/dL Albumin/Globulin Ratio 1.6 (1.0-2.8) Lipase 113 (23-300) U/L Procalcitonin (<0.5) ng/mL Urine RBC (0-5/HPF) Urine WBC (0-5/HPF) Ur Squamous Epith Cells Urine Bacteria (None) Ur Culture Indicated? Micro UA Comment 09/09/18 09/09/18 09/09/18 Range/Units 11:35 12:28 15:17 WBC (4.5-11.0) X10^3/uL RBC (4.0-5.2) X10^6/uL Hgb (12.0-16.0) g/dL Hct (36-46) % MCV (80-100) fL MCH (26-34) PG MCHC (30-36) % RDW (11.6-14.8) % Plt Count (150-400) X10^3/uL Neut % (Auto) (50-75) % Lymph % (Auto) (25-40) % [place] % (Auto) (3-14) % Eos % (Auto) (2-4) % Baso % (Auto) (0-2) % Neut # (Auto) (7784-7635) /uL PT (10.1-12.7) SECONDS INR (0.9-1.3) APTT (26.4-36.2) SECONDS Sodium (137-145) mmol/L Potassium (3.4-5.1) mmol/L Chloride (98-107) mmol/L Carbon Dioxide (22-32) mmol/L BUN (7-17) mg/dL Creatinine (0.52-1.04) mg/dL Estimated GFR (>60) mL/min BUN/Creatinine Ratio (6-22) Glucose (80-110) mg/dL Lactate 1.9 (0.7-2.1) mmol/L Calcium (8.4-10.2) mg/dL Total Bilirubin (0.2-1.3) mg/dL AST (14-36) IU/L ALT (9-52) IU/L Alkaline Phosphatase (38-126) U/L Total Protein (6.3-8.2) g/dL Albumin (3.5-5.0) g/dL Globulin (1.7-4.1) g/dL Albumin/Globulin Ratio (1.0-2.8) Lipase (23-300) U/L Procalcitonin < 0.05 (<0.5) ng/mL Urine RBC 1-5/hpf (0-5/HPF) Urine WBC 5-10/hpf H (0-5/HPF) Ur Squamous Epith Cells 5-10 /hpf H Urine Bacteria Moderate (10-30) H (None) Ur Culture Indicated? Specimen cultured Micro UA Comment Not Reportable 09/10/18 09/10/18 Range/Units 05:37 05:37 WBC 6.2 (4.5-11.0) X10^3/uL RBC 3.85 L (4.0-5.2) X10^6/uL Hgb 12.6 (12.0-16.0) g/dL Hct 37.5 (36-46) % MCV 97.2 (80-100) fL MCH 32.8 (26-34) PG MCHC 33.8 (30-36) % RDW 12.8 (11.6-14.8) % Plt Count 190 (150-400) X10^3/uL Neut % (Auto) 62.1 (50-75) % Lymph % (Auto) 28.0 (25-40) % [place] % (Auto) 7.5 (3-14) % Eos % (Auto) 1.3 L (2-4) % Baso % (Auto) 1.1 (0-2) % Neut # (Auto) 3900 (8581-2314) /uL PT (10.1-12.7) SECONDS INR (0.9-1.3) APTT (26.4-36.2) SECONDS Sodium 136 L (137-145) mmol/L Potassium 3.9 (3.4-5.1) mmol/L Chloride 105 (98-107) mmol/L Carbon Dioxide 22 (22-32) mmol/L BUN 14 (7-17) mg/dL Creatinine 0.80 (0.52-1.04) mg/dL Estimated GFR > 60.0 (>60) mL/min BUN/Creatinine Ratio 17.5 (6-22) Glucose 96 (80-110) mg/dL Lactate (0.7-2.1) mmol/L Calcium 7.9 L (8.4-10.2) mg/dL Total Bilirubin (0.2-1.3) mg/dL AST (14-36) IU/L ALT (9-52) IU/L Alkaline Phosphatase (38-126) U/L Total Protein (6.3-8.2) g/dL Albumin (3.5-5.0) g/dL Globulin (1.7-4.1) g/dL Albumin/Globulin Ratio (1.0-2.8) Lipase (23-300) U/L Procalcitonin (<0.5) ng/mL Urine RBC (0-5/HPF) Urine WBC (0-5/HPF) Ur Squamous Epith Cells Urine Bacteria (None) Ur Culture Indicated? Micro UA Comment Urine Dip Bedside Urine Glucose Negative Bedside Urine Bilirubin - Negative Bedside Urine Ketone - Negative Urine Specific [place] 1.015 Bedside Urine Occult Blood +/- Bedside Urine pH 8.0 Bedside Urine Protein - Negative Bedside Urine Urobilinogen - Negative Bedside Urine Nitrite - Negative Bedside Urine Leukocytes +++ [address] scan - abdomen: Radiologist's impression: [address] [address] [address] Scan Report Signed Patient: Meghana King#: [id number] : 4Acct:[id number] Age/Sex: 62 / FDate of Service: 09/09/18 Loc: ED Accession Number: [id number] Procedure: CT kidney ureter bladder (KUB) Ordering Provider: Osmin Sanchez PROCEDURE: CT KIDNEY URETER BLADDER (KUB) INDICATIONS: History kidney stones right flank pain TECHNIQUE: Noncontrast 5 mm thick sections acquired from the diaphragms to the symphysis. 5 mm thick coronal and sagittal reformats were then performed. For radiation dose reduction, the following was used: automated exposure control, adjustment of mA and/or kV according to patient size. COMPARISON: None. FINDINGS: Image quality: Excellent. Lung bases: Lung bases are clear. Heart size is normal. Urinary system: The right kidney is enlarged with mild perinephric fat stranding. There is mild right hydronephrosis and a large extrarenal pelvis with mild dilatation of the right ureter to the level of the pelvis. There is likely a 4 mm diameter calculus within the distal right ureter (series 2, image 65). However, the ureter is not definitely visualized in this region given the confluence of vessels on decompressed loops of small bowel making confirmation for ureterolithiasis difficult. Left kidney demonstrates normal size. There is a large low density upper pole left renal cyst. There is likely a cortical cyst within the lower pole the right kidney as well. No left nephrolithiasis ureterolithiasis or hydroureter. Other solid organs: Liver is normal in size. Gallbladder is unremarkable. Pancreas is normal in contours. Spleen is normal in size. No adrenal nodules. Peritoneum and bowel: Unenhanced bowel loops demonstrate normal wall thickness and caliber. The appendix is thin walled and gas filled. There are scattered sigmoid diverticula. No evidence for diverticulitis. No free fluid or air. Nodes and vessels: No retroperitoneal or mesenteric adenopathy by size criteria. Aorta and inferior vena cava are normal in caliber. Abdominal wall: No ventral hernias. Pelvis: No free pelvic fluid. No inguinal hernias or adenopathy. Bones: No suspicious bony lesions. No vertebral body compression fractures. IMPRESSION: 1. Findings suspicious for obstructive ureterolithiasis of the distal right ureter as described above. 2. Perinephric fat stranding can be associated with obstruction; however pyelonephritis could also cause this appearance. Please correlate clinically. These findings were discussed with LAURA Torres at 2:22 PM on 09/09/18. 3. Normal appendix. Diverticulosis. No acute diverticulitis. Dictated by: Subha Ardon M.D. on 09/09/2018 at 14:18 Approved by: Subha Ardon M.D. on 09/09/2018 at 14:25 ECG Data Interpretation: EKG shows sinus bradycardia no ST elevation or depression. No ectopy. Ventricular rate of 51. Pr interval 153. QRS duration of 89. QT of 469. MDM Narrative Medical decision making narrative: Urinalysis was obtained and indicates WBCsAnd leuko esterase concerning for urinary tract infection. CBC was obtained was unremarkable. CMP was obtained and shows mildly elevated AST and ALT. There is a slight decrease in her GFR 55.8. KUB CT was obtained and shows right hydroureter right hydronephrosis and signs of a 4 mm stone into her right distal ureter however it Radiology was not able to definitely visualize a stone. Patient was given 8 of Zofran and 10 of Compazine and 25 of Benadryl to help with her nausea. Her nausea was better after this however was not fully resolved. Discussed case with Urology at who recommended admission due to her nausea and vomiting and concerned about her being able to tolerate p.o. medications. She was started on Levaquin to treat urinary tract infection/ pyelonephritis. She was also given Flomax p.o. to help her pass the stone. Urine culture, blood cultures were obtained and are pending. Discussed case with hospitalist who accepted the patient. Patient admitted to observation <Ortega Waldron DO - Last Filed: 09/10/18 07:04> Lab Data Lab Results 09/09/18 09/09/18 09/09/18 Range/Units 11:35 11:35 11:35 WBC 5.0 (4.5-11.0) X10^3/uL RBC 4.36 (4.0-5.2) X10^6/uL Hgb 14.3 (12.0-16.0) g/dL Hct 42.2 (36-46) % MCV 96.9 (80-100) fL MCH 32.9 (26-34) PG MCHC 34.0 (30-36) % RDW 13.1 (11.6-14.8) % Plt Count 222 (150-400) X10^3/uL Neut % (Auto) 57.1 (50-75) % Lymph % (Auto) 31.7 (25-40) % [place] % (Auto) 7.0 (3-14) % Eos % (Auto) 2.8 (2-4) % Baso % (Auto) 1.4 (0-2) % Neut # (Auto) 2900 L (7541-4862) /uL PT 10.0 L (10.1-12.7) SECONDS INR 0.9 (0.9-1.3) APTT 20 L (26.4-36.2) SECONDS Sodium 139 (137-145) mmol/L Potassium 3.9 (3.4-5.1) mmol/L Chloride 101 (98-107) mmol/L Carbon Dioxide 27 (22-32) mmol/L BUN 15 (7-17) mg/dL Creatinine 1.00 (0.52-1.04) mg/dL Estimated GFR 55.8 L (>60) mL/min BUN/Creatinine Ratio 15.0 (6-22) Glucose 112 H (80-110) mg/dL Lactate (0.7-2.1) mmol/L Calcium 8.8 (8.4-10.2) mg/dL Total Bilirubin 0.5 (0.2-1.3) mg/dL AST 104 H (14-36) IU/L ALT 72 H (9-52) IU/L Alkaline Phosphatase 104 (38-126) U/L Total Protein 7.1 (6.3-8.2) g/dL Albumin 4.4 (3.5-5.0) g/dL Globulin 2.7 (1.7-4.1) g/dL Albumin/Globulin Ratio 1.6 (1.0-2.8) Lipase 113 (23-300) U/L Procalcitonin (<0.5) ng/mL Urine RBC (0-5/HPF) Urine WBC (0-5/HPF) Ur Squamous Epith Cells Urine Bacteria (None) Ur Culture Indicated? Micro UA Comment 09/09/18 09/09/1809/09/18 Range/Units 11:35 12:28 15:17 WBC (4.5-11.0) X10^3/uL RBC (4.0-5.2) X10^6/uL Hgb (12.0-16.0) g/dL Hct (36-46) % MCV (80-100) fL MCH (26-34) PG MCHC (30-36) % RDW (11.6-14.8) % Plt Count (150-400) X10^3/uL Neut % (Auto) (50-75) % Lymph % (Auto) (25-40) % [place] % (Auto) (3-14) % Eos % (Auto) (2-4) % Baso % (Auto) (0-2) % Neut # (Auto) (3909-6807) /uL PT (10.1-12.7) SECONDS INR (0.9-1.3) APTT (26.4-36.2) SECONDS Sodium (137-145) mmol/L Potassium (3.4-5.1) mmol/L Chloride (98-107) mmol/L Carbon Dioxide (22-32) mmol/L BUN (7-17) mg/dL Creatinine (0.52-1.04) mg/dL Estimated GFR (>60) mL/min BUN/Creatinine Ratio (6-22) Glucose (80-110) mg/dL Lactate 1.9 (0.7-2.1) mmol/L Calcium (8.4-10.2) mg/dL Total Bilirubin (0.2-1.3) mg/dL AST (14-36) IU/L ALT (9-52) IU/L Alkaline Phosphatase (38-126) U/L Total Protein (6.3-8.2) g/dL Albumin (3.5-5.0) g/dL Globulin (1.7-4.1) g/dL Albumin/Globulin Ratio (1.0-2.8) Lipase (23-300) U/L Procalcitonin < 0.05 (<0.5) ng/mL Urine RBC 1-5/hpf (0-5/HPF) Urine WBC 5-10/hpf H (0-5/HPF) Ur Squamous Epith Cells 5-10 /hpf H Urine Bacteria Moderate (10-30) H (None) Ur Culture Indicated? Specimen cultured Micro UA Comment Not Reportable 09/10/18 09/10/18 Range/Units 05:37 05:37 WBC 6.2 (4.5-11.0) X10^3/uL RBC 3.85 L (4.0-5.2) X10^6/uL Hgb 12.6 (12.0-16.0) g/dL Hct 37.5 (36-46) % MCV 97.2 (80-100) fL MCH 32.8 (26-34) PG MCHC 33.8 (30-36) % RDW 12.8 (11.6-14.8) % Plt Count 190 (150-400) X10^3/uL Neut % (Auto) 62.1 (50-75) % Lymph % (Auto) 28.0 (25-40) % [place] % (Auto) 7.5 (3-14) % Eos % (Auto) 1.3 L (2-4) % Baso % (Auto) 1.1 (0-2) % Neut # (Auto) 3900 (2954-5178) /uL PT (10.1-12.7) SECONDS INR (0.9-1.3) APTT (26.4-36.2) SECONDS Sodium 136 L (137-145) mmol/L Potassium 3.9 (3.4-5.1) mmol/L Chloride 105 (98-107) mmol/L Carbon Dioxide 22 (22-32) mmol/L BUN 14 (7-17) mg/dL Creatinine 0.80 (0.52-1.04) mg/dL Estimated GFR > 60.0 (>60) mL/min BUN/Creatinine Ratio 17.5 (6-22) Glucose 96 (80-110) mg/dL Lactate (0.7-2.1) mmol/L Calcium 7.9 L (8.4-10.2) mg/dL Total Bilirubin (0.2-1.3) mg/dL AST (14-36) IU/L ALT (9-52) IU/L Alkaline Phosphatase (38-126) U/L Total Protein (6.3-8.2) g/dL Albumin (3.5-5.0) g/dL Globulin (1.7-4.1) g/dL Albumin/Globulin Ratio (1.0-2.8) Lipase (23-300) U/L Procalcitonin (<0.5) ng/mL Urine RBC (0-5/HPF) Urine WBC (0-5/HPF) Ur Squamous Epith Cells Urine Bacteria (None) Ur Culture Indicated? Micro UA Comment Urine Dip Bedside Urine Glucose Negative Bedside Urine Bilirubin - Negative Bedside Urine Ketone - Negative Urine Specific [place] 1.015 Bedside Urine Occult Blood +/- Bedside Urine pH 8.0 Bedside Urine Protein - Negative Bedside Urine Urobilinogen - Negative Bedside Urine Nitrite - Negative Bedside Urine Leukocytes +++ 500 Esterase Discharge Plan Departure Patient Disposition: Admitted as Observation Clinical Impression: Nephrolithiasis Discharge Date/Time: 09/09/18 16:13 Interventions: ED Discharge Assessment Last Done: 09/09/18 16:13 Admit Date/Time: 09/09/18 15:09 Admit Provider: Doris Brown <Ortega Waldron DO - Last Filed: 09/10/18 07:04> Cosign ED Attending Georginaature Attestation: I was available for consultation during this patient's emergency department encounter
[2018-09-09] MEDS: levoFLOXacin 750 MG/150 ML PIGGYBACK 100 MG IV (15:34)
[2018-09-09 15:39] LABS: Lactate (Lactic Acid) 1.9 mmol/L (0.7-2.1)
--- NOTE | 2018-09-09 16:01 | PM.HP.1 ---
History of Present Illness Date Patient Seen: 09/09/18 Time Patient Seen: 16:01 Chief complaint: kidney stones Narrative: 62-year-old female with past medical history of anxiety and ADHD, as well as history nephrolithiasis in the past with successful passing of stones presented to emergency department with right CVA pain, nausea and vomiting. Patient states she was in her normal state of health early this morning. After she ate her breakfast, around 10 30 patient started experiencing severe right-sided costovertebral angle tenderness. With it patient felt severe nausea and has vomited at least 4 times, which was nonbilious nonbloody. The pain has progressed over the next 3 hr and patient was brought to emergency department. By that time patient stated that her pain has moved from the right back pain to right lower quadrant abdominal pain. Patient also started experiencing urinary urgency, however when she tries to urinate not much urine is coming out. Denies any dysuria or hematuria. Patient denies any recent fevers or chills, diarrhea, shortness of breath, chest pain, sore throat, blurry vision, dizziness, loss of consciousness. In the emergency department, patient's vitals are stable with exception of blood pressure that was 154/79. Lab work revealed WBC of 5.0, hemoglobin 14.3, hematocrit 42.2, platelets 222. Sodium was 139, potassium 3.9, chloride 101, carbon dioxide 27, BUN 15, creatinine 1.0, glucose 112, lactate 1.9, AST 104, ALT 72, procalcitonin less than 0.05. Urinalysis showed WBCs of 5-10, with moderate bacteria. CT of the abdomen and pelvis was performed which revealed Findings suspicious for obstructive ureterolithiasis of the distal right ureter, and Perinephric fat stranding can be associated with obstruction; however pyelonephritis could also cause this appearance. [facility] nephrology was consulted, who recommended patient to be admitted for treatment of nausea and vomiting as well as UTI and follow up on the outpatient basis at [facility] on Wednesday. In ED patient was given Flomax 0.4 mg, ceftriaxone 1 mg IV, 4 mg IV Zofran, 10 mg IV Compazine, 25 mg IV Benadryl, and 30 mg Toradol IV. Patient's nausea has subsided and she was admitted to general medical floor for further therapy of nephrolithiasis and UTI. Patient History Medical History Nephrolithiasis (Acute) ADHD (Chronic) Anxiety (Chronic) Family & Social History Safety & Behavioral: Feels Safe in Current Yes Environment Been Physically Hurt or No Threatened By a Person Tobacco & Substance use: Smoking Status Never smoker alcohol intake frequency 0-2 drinks per day Substance Use Type does not use Meds Home Medications Medication Instructions Recorded Confirmed Type lisdexamfetamine [Vyvanse] 40 mg PO QAM 09/09/18 09/09/18 History naproxen sodium [Aleve] 440 mg PO BID PRN 09/09/18 09/09/18 History trazodone 50 mg PO BEDTIME PRN 09/09/18 09/09/18 History venlafaxine 75 mg PO DAILY 09/09/18 09/09/18 History Allergies Allergy/AdvReac Type Severity Reaction Status Date / Time erythromycin base Allergy Unknown Verified 09/09/18 11:21 Review of Systems Review of Systems All systems reviewed & are unremarkable except as noted in HPI and below Exam Vital Signs (past 8 hours): - 09/09/18 11:18 09/09/18 13:03 09/09/18 14:25 Temperature 97.6 F Pulse Rate 50 L 54 L 54 L Respiratory Rate 14 14 Blood Pressure 142/85 H 154/79 H Blood Pressure [Left Arm] 154/79 H Pulse Oximetry 100 100 Oxygen Delivery Method Room Air Narrative Exam Narrative: General: Patient is slightly drowsy, however answers all questions. No acute distress HEENT: PERRLA bilaterally, moist mucous membranes Neck: Supple, no LAD or JVD CV: Regular rate rhythm, no murmurs or gallops Respiratory: CTA bilaterally, no wheezing or crackles GI: No tenderness to palpation in any quadrant at the moment. Positive bowel sounds in all 4 quadrants. No organomegaly Back: No CVA tenderness at the moment Musculoskeletal: Moves all extremities Extremities: No edema noted Skin: No bruising or lesions Neuro: No focal deficit Psych: AAO x3, mood is appropriate but slightly drowsy from Benadryl Objective Labs Result Diagrams: 09/09/18 11:35 09/09/18 11:35 Labs: Laboratory Results - last 24 hr 09/09/18 09/09/18 09/09/18 11:35 11:35 11:35 WBC 5.0 RBC 4.36 Hgb 14.3 Hct 42.2 MCV 96.9 MCH 32.9 MCHC 34.0 RDW 13.1 Plt Count 222 Neut % (Auto) 57.1 Lymph % (Auto) 31.7 [place] % (Auto) 7.0 Eos % (Auto) 2.8 Baso % (Auto) 1.4 Neut # (Auto) 2900 L PT 10.0 L INR 0.9 APTT 20 L Sodium 139 Potassium 3.9 Chloride 101 Carbon Dioxide 27 BUN 15 Creatinine 1.00 Estimated GFR 55.8 L BUN/Creatinine Ratio 15.0 Glucose 112 H Lactate Calcium 8.8 Total Bilirubin 0.5 AST 104 H ALT 72 H Alkaline Phosphatase 104 Total Protein 7.1 Albumin 4.4 Globulin 2.7 Albumin/Globulin Ratio 1.6 Lipase 113 Urine RBC Urine WBC Ur Squamous Epith Cells Urine Bacteria Ur Culture Indicated? Micro UA Comment 09/09/18 09/09/18 12:28 15:17 WBC RBC Hgb Hct MCV MCH MCHC RDW Plt Count Neut % (Auto) Lymph % (Auto) [place] % (Auto) Eos % (Auto) Baso % (Auto) Neut # (Auto) PT INR APTT Sodium Potassium Chloride Carbon Dioxide BUN Creatinine Estimated GFR BUN/Creatinine Ratio Glucose Lactate 1.9 Calcium Total Bilirubin AST ALT Alkaline Phosphatase Total Protein Albumin Globulin Albumin/Globulin Ratio Lipase Urine RBC 1-5/hpf Urine WBC 5-10/hpf H Ur Squamous Epith Cells 5-10 /hpf H Urine Bacteria Moderate (10-30) H Ur Culture Indicated? Specimen cultured Micro UA Comment Not Reportable Assessment & Plan Plan: Assessment/Plan Narrative: 1. Acute nephrolithiasis -CT abd/pelvis revealed: 1. Findings suspicious for obstructive ureterolithiasis of the distal right ureter 2. Perinephric fat stranding can be associated with obstruction; however pyelonephritis could also cause this appearance. -will initiate Flomax 0.4 mg p.o. daily -will give hydration 0.9 NS at 100 cc an hour -will control symptoms of nausea/vomiting/pain with Zofran IV as needed, promethazine IV as needed, and morphine IV as needed -clear liquid diet as tolerated 2. UTI -as shown by urinalysis -no fever, no leukocytosis, lactate and procalcitonin are normal -will start patient on levofloxacin 750 mg IV daily and switch to p.o. regimen -urine and blood cultures pending 3. ADHD/anxiety -resume patient's home medications Full code DVT prophylaxis with Lovenox subQ 40 min spent evaluating and treating this patient
[2018-09-09 16:06] LABS: Procalcitonin < 0.05 ng/mL (<0.5)
[2018-09-09] MEDS: SODIUM CHLORIDE 0.9% 1,000 ML 100 ML IV (16:31)
[2018-09-09] MEDS: MORPHINE 2 MG/ML INJ IV (16:39)
--- NOTE | 2018-09-09 16:57 | PC.NURSE ---
Patient up to room at 1600. Patient reports extreme pain in right flank and in groin area along with some tingling in groin. Pain is 7/10, down to 3 after morphine IV. 98% on RA. Patient reports minor nausea, especially after being given morphine. Sat her up in bed a little bit and provided emesis bag. Patient states she is feeling a little better now. Patient has been up to room for approx 1 hour and has already needed to void three times, each time about 50 ml. IVF are infusing as ordered. Patient has been oriented to room and use of call light. Verbalizes understanding not to get out of bed by herself. Skin is intact. Will continue to monitor.
[2018-09-10] VITALS: O2SAT 96
[2018-09-10] MEDS: SODIUM CHLORIDE 0.9% 1,000 ML 100 ML IV (03:20)
[2018-09-10 03:27] VITALS: BP 103/50; PULSE 61; RESP 16; TEMP 36.4; O2SAT 94
--- NOTE | 2018-09-10 04:13 | PC.NURSE ---
Patient states she passed a stone, and CARDIOLOGIST reported same. Flushed before this nurse could see. Strainer now to be used this shift for all urinary output.
[2018-09-10 06:01] LABS: Add Manual Diff / Slide Review NO; Basophils Percent Auto 1.1 % (0-2); Eosinophils Percent Auto 1.3 % (2-4); Hematocrit 37.5 % (36-46); Hemoglobin 12.6 g/dL (12.0-16.0); Mean Corpuscular HGB Conc 33.8 % (30-36); Mean Corpuscular Hemoglobin 32.8 PG (26-34); Mean Corpuscular Volume 97.2 fL (80-100); Monocytes Percent Auto 7.5 % (3-14); Neutrophils Absolute Auto 3900 /uL (3000-5900); Neutrophils Percent Auto 62.1 % (50-75); Platelet Count 190 X10^3/uL (150-400); Red Blood Cell Count 3.85 X10^6/uL (4.0-5.2); Red Cell Distribution Width 12.8 % (11.6-14.8); White Blood Cell Count 6.2 X10^3/uL (4.5-11.0)
[2018-09-10 06:12] LABS: BUN Creatinine Ratio 17.5 (6-22); Blood Urea Nitrogen 14 mg/dL (7-17); Calcium 7.9 mg/dL (8.4-10.2); Carbon Dioxide 22 mmol/L (22-32); Chloride 105 mmol/L (98-107); Estimated Glomerular Filt Rate > 60.0 mL/min (>60); Glucose 96 mg/dL (80-110); HEMOLYSIS 24 (0-50); Potassium 3.9 mmol/L (3.4-5.1); Sodium 136 mmol/L (137-145)
[2018-09-10 07:25] VITALS: BP 111/75; PULSE 60; RESP 20; TEMP 36.5; O2SAT 98
--- NOTE | 2018-09-10 08:20 | PM.DS.1 ---
History of Present Illness Chief complaint: kidney stones Narrative: 62-year-old female with past medical history of anxiety and ADHD, as well as history nephrolithiasis in the past with successful passing of stones presented to emergency department with right CVA pain, nausea and vomiting. Patient states she was in her normal state of health early this morning. After she ate her breakfast, around 10 30 patient started experiencing severe right-sided costovertebral angle tenderness. With it patient felt severe nausea and has vomited at least 4 times, which was nonbilious nonbloody. The pain has progressed over the next 3 hr and patient was brought to emergency department. By that time patient stated that her pain has moved from the right back pain to right lower quadrant abdominal pain. Patient also started experiencing urinary urgency, however when she tries to urinate not much urine is coming out. Denies any dysuria or hematuria. Patient denies any recent fevers or chills, diarrhea, shortness of breath, chest pain, sore throat, blurry vision, dizziness, loss of consciousness. Discharge Providers Date of admission: 09/09/18 15:09 Primary care physician: Lidia Cao Discharge provider: Doris Brown MD Discharge Date: 09/10/18 Summary Hospital Course: In the emergency department, patient's vitals are stable with exception of blood pressure that was 154/79. Lab work revealed WBC of 5.0, hemoglobin 14.3, hematocrit 42.2, platelets 222. Sodium was 139, potassium 3.9, chloride 101, carbon dioxide 27, BUN 15, creatinine 1.0, glucose 112, lactate 1.9, AST 104, ALT 72, procalcitonin less than 0.05. Urinalysis showed WBCs of 5-10, with moderate bacteria. CT of the abdomen and pelvis was performed which revealed Findings suspicious for obstructive ureterolithiasis of the distal right ureter, and Perinephric fat stranding can be associated with obstruction; however pyelonephritis could also cause this appearance. [facility] nephrology was consulted, who recommended patient to be admitted for treatment of nausea and vomiting as well as UTI and follow up on the outpatient basis at the [facility] on Wednesday. In ED patient was given Flomax 0.4 mg, ceftriaxone 1 mg IV, 4 mg IV Zofran, 10 mg IV Compazine, 25 mg IV Benadryl, and 30 mg Toradol IV. Patient's nausea has subsided and she was admitted to general medical floor for further therapy of nephrolithiasis and UTI. Once on the floors, patient was started on IV Zofran PRN, IV Morphine PRN, levofloxacin IV 750 mg daily, and Flomax 0.4 mg daily. About 11:00 p.m., patient used the toilet and has passed a stone. She immediately felt better, continued to improve throughout the night. On the day of the discharge patient was completely asymptomatic. She will be sent home with follow-up to nephrolithiasis clinic on Wednesday. She will be discharged on Bactrim 1 tab DS b.i.d. x3 days for treatment of UTI Status at Discharge Functional status at discharge: independent ambulation Overall status at discharge: patient is back to baseline Exam Vital Signs (past 8 hours): - 09/10/18 03:27 Temperature 97.6 F Pulse Rate 61 Respiratory Rate 16 Blood Pressure 103/50 L Pulse Oximetry 94 Oxygen Delivery Method Room Air Oxygen Flow Rate 0 Narrative Exam Narrative: General: No acute distress HEENT: PERRLA bilaterally, moist mucous membranes Neck: Supple, no LAD or JVD CV: Regular rate rhythm, no murmurs or gallops Respiratory: CTA bilaterally, no wheezing or crackles GI: No tenderness to palpation in any quadrant. Positive bowel sounds in all 4 quadrants. No organomegaly Back: No CVA tenderness Musculoskeletal: Moves all extremities Extremities: No edema noted Skin: No bruising or lesions Neuro: No focal deficit Psych: AAO x3, mood is appropriate Objective Labs Result Diagrams: 09/10/18 05:37 09/10/18 05:37 Labs: Laboratory Results - last 24 hr 09/09/18 09/09/18 09/09/18 11:35 11:35 11:35 WBC 5.0 RBC 4.36 Hgb 14.3 Hct 42.2 MCV 96.9 MCH 32.9 MCHC 34.0 RDW 13.1 Plt Count 222 Neut % (Auto) 57.1 Lymph % (Auto) 31.7 [place] % (Auto) 7.0 Eos % (Auto) 2.8 Baso % (Auto) 1.4 Neut # (Auto) 2900 L PT 10.0 L INR 0.9 APTT 20 L Sodium 139 Potassium 3.9 Chloride 101 Carbon Dioxide 27 BUN 15 Creatinine 1.00 Estimated GFR 55.8 L BUN/Creatinine Ratio 15.0 Glucose 112 H Lactate Calcium 8.8 Total Bilirubin 0.5 AST 104 H ALT 72 H Alkaline Phosphatase 104 Total Protein 7.1 Albumin 4.4 Globulin 2.7 Albumin/Globulin Ratio 1.6 Lipase 113 Procalcitonin Urine RBC Urine WBC Ur Squamous Epith Cells Urine Bacteria Ur Culture Indicated? Micro UA Comment 09/09/18 09/09/18 09/09/18 11:35 12:28 15:17 WBC RBC Hgb Hct MCV MCH MCHC RDW Plt Count Neut % (Auto) Lymph % (Auto) [place] % (Auto) Eos % (Auto) Baso % (Auto) Neut # (Auto) PT INR APTT Sodium Potassium Chloride Carbon Dioxide BUN Creatinine Estimated GFR BUN/Creatinine Ratio Glucose Lactate 1.9 Calcium Total Bilirubin AST ALT Alkaline Phosphatase Total Protein Albumin Globulin Albumin/Globulin Ratio Lipase Procalcitonin < 0.05 Urine RBC 1-5/hpf Urine WBC 5-10/hpf H Ur Squamous Epith Cells 5-10 /hpf H Urine Bacteria Moderate (10-30) H Ur Culture Indicated? Specimen cultured Micro UA Comment Not Reportable 09/10/18 09/10/18 05:37 05:37 WBC 6.2 RBC 3.85 L Hgb 12.6 Hct 37.5 MCV 97.2 MCH 32.8 MCHC 33.8 RDW 12.8 Plt Count 190 Neut % (Auto) 62.1 Lymph % (Auto) 28.0 [place] % (Auto) 7.5 Eos % (Auto) 1.3 L Baso % (Auto) 1.1 Neut # (Auto) 3900 PT INR APTT Sodium 136 L Potassium 3.9 Chloride 105 Carbon Dioxide 22 BUN 14 Creatinine 0.80 Estimated GFR > 60.0 BUN/Creatinine Ratio 17.5 Glucose 96 Lactate Calcium 7.9 L Total Bilirubin AST ALT Alkaline Phosphatase Total Protein Albumin Globulin Albumin/Globulin Ratio Lipase Procalcitonin Urine RBC Urine WBC Ur Squamous Epith Cells Urine Bacteria Ur Culture Indicated? Micro UA Comment Discharge Plan Discharge Plan Discharge Problem: Nephrolithiasis Discharge comment: Patient needs to follow up with nephrolithiasis clinic on Wednesday, 09/13 Discharge Med Rec/Prescriptions Prescriptions: New sulfamethoxazole-trimethoprim [Bactrim DS] 800-160 mg tablet 1 tab PO BID 3 Days Qty: 6 RF: 0 Continue venlafaxine 75 mg Capsule,Extended Release 24hr 75 mg PO DAILY RF: 0 lisdexamfetamine [Vyvanse] 40 mg Capsule 40 mg PO QAM RF: 0 trazodone 50 mg Tablet 50 mg PO BEDTIME PRN (Reason: Sleep) RF: 0 naproxen sodium [Aleve] 220 mg Tablet 440 mg PO BID PRN (Reason: Pain (Scale Score 4-6)) RF: 0 Discharge Orders: Discharge (Order); Ordered 09/10/18 Ordered By: Doris Brown Provider Discharge Instructions Diet: Regular Liquid consistency: Normal/Thin Food texture: Regular Discharge Data Primary Care Provider: Lidia Cao Attending Provider: Doris Brown Admit Date/Time: 09/09/18 15:09
[2018-09-10] MEDS: VENLAFAXINE ER 75 MG CAP PO (08:53)
[2018-09-10 09:01] VITALS: O2SAT 98
--- NOTE | 2018-09-10 11:06 | PC.NURSE ---
Addendum entered by Sheri Cruz R.N. 09/10/18 11:37: Walked out to private vehicle accompanied by this screen writer. Original Note: Discharge: IV dc'd intact. Reviewed all d/c instructions thoroughly. Given info for Nephrolithiasis clinic so she can schedule follow up. Script for Bactrim called in to [facility]- patient instructed to cloth picker today, take as directed until all gone. Reviewed s/sx with which to call MD/return to hospital. Patient verbalized understanding of all d/c instructions and stated no further questions. All belongings packed and ready to send with patient, just waiting on her ride.
--- NOTE | 2018-09-11 09:27 | CM.IDA ---
Addendum entered by NARDA Quach 09/11/18 10:14: Late Entry. DC Home 09.10.18 Original Note: Discharge Planning/Care Management CM Discharge Assessment Start: 09/11/18 09:13 Freq: Status: Active Protocol: Document 09/11/18 09:21 SHE (Rec: 09/11/18 09:27 SHE [id number]) Discharge Planning Assessment Assigned Product Safety Tester NARDA Roberts DPOA/Assigned Designee Name Verónica Ma, family Contact Information [phone] Advance Directives? No Advance Directives on File No History Provided By Patient Medical Record Prior Living Arrangements House Household Members none Type of transporation used prior to Drives own vehicle admit Independent with ADL's Yes Is patient alert and oriented? Yes Barriers to Discharge No Comment Home/friend to transport. Discharge Plan Home Transportation Arrangement Friend Referrals Initiated None needed Additional Comment Pt has passed a kidney stone, feels much better and is eager to return home. Pt is functionally at baseline, indp . Whiteboard Updated in Patient Room with Yes name and ext. # of Product Safety Tester
== END 2018-09-10 11:38 | disposition home or self-care (01) ==
LOC: ED 15:07 → AC 15:10
PROVIDERS: Emergency Medicine; Admitting Provider Internal Medicine; Emergency Provider Nurse Practitioner Family; PCP Family Medicine; Visit Provider Internal Medicine
DX: N20.0 Calculus of kidney (principal); R10.11 Right upper quadrant pain; R11.2 Nausea with vomiting, unspecified; F41.9 Anxiety disorder, unspecified; F90.9 Attention-deficit hyperactivity disorder, unspecified type; N39.0 Urinary tract infection, site not specified
CPT/HCPCS: 36415; 36591; 74176; 80048; 80053; 81003; 81015; 83605; 83690; 84145; 85025; 85610; 85730; 87040; 87086; 93005; 96374; 96375; 96376; 99282; 99285; G0378; J0780; J1200; J1885; J1956; J2270; J2405